=== PATIENT | male | born 1955 | race Two or more races ===

== ENCOUNTER → 2020-03-27 | Emergency (ER) | payer MEDICAID | END | disposition left against medical advice (07) | LOC: ER 22:33 | DX: B02.9 Zoster without complications (principal); Z53.21 Procedure and treatment not carried out due to patient leaving prior to being seen by health care provider ==

== ENCOUNTER 2020-03-28 07:41 | Emergency (ER) | payer MEDICAID ==
[~2020-03-28] VITALS: Ht 170.2 cm; Wt 108.9 kg
[2020-03-28 08:13] VITALS: BP 138/57
[2020-03-28] MEDS ORDERED: cefTRIAXone 1GM/50ML D5W 50 ML IV ONE (09:00)
[2020-03-28] MEDS ORDERED: ACETAMINOPHEN 325 MG TAB PO ONE (09:15)
== END 2020-03-28 09:47 | disposition home or self-care (01) ==
LOC: ER 07:41
DX: L02.211 Cutaneous abscess of abdominal wall (principal); I10 Essential (primary) hypertension
CPT/HCPCS: 96365; 99284; J0696

== ENCOUNTER 2020-08-24 18:43 | Emergency (ER) | payer OTHER, MEDICAID ==
[~2020-08-24] VITALS: Ht 170.2 cm; Wt 111.1 kg
[2020-08-24 19:11] VITALS: BP 141/71
== END 2020-08-24 22:03 | disposition home or self-care (01) ==
LOC: ER 18:43
DX: H92.01 Otalgia, right ear (principal); Z53.21 Procedure and treatment not carried out due to patient leaving prior to being seen by health care provider

== ENCOUNTER 2021-02-20 00:20 | Emergency (ER) | payer MEDICARE, MEDICAID ==
[~2021-02-20] VITALS: Ht 170.2 cm; Wt 111.1 kg
[2021-02-20 01:47] LABS: Basophils # (auto) 0 10 ^3/uL (0-0.2); Basophils % (auto) 0.4 % (0.0-2.0); Eosinophils # (auto) 0.3 10 ^3/uL (0-0.8); Eosinophils % (auto) 4.5 % (0.0-7.0); Hematocrit 47.5 % (41.0-53.0); Hemoglobin 16.3 g/dL (13.5-17.5); Lymphocytes # (auto) 2.9 10 ^3/uL (0.4-5.4); Lymphocytes % (auto) 48.9 % (10.0-50.0); Mean Corpuscular Hemoglobin 30.5 pg (28.0-32.0); Mean Corpuscular Hgb Conc. 34.4 g/dL (32.0-36.0); Mean Corpuscular Volume 88.8 fL (80.0-100.0); Monocytes # (auto) 0.6 10 ^3/uL (0-1.3); Monocytes % (auto) 9.6 % (0.0-12.0); Neutrophils # (auto) 2.2 10 ^3/uL (1.6-8.6); Neutrophils % (auto) 36.6 % (37.0-80.0); Nucleated Red Blood Cells % 0.1 %; Platelet Count (auto) 215 10^3/uL (140-450); Red Blood Cells 5.35 10^6/uL (4.5-5.90); Red Cell Distribution Width 13.6 % (11.8-14.3)
[2021-02-20 01:50] LABS: INR 0.97 (0.9-1.15); Partial Thromboplastin Time 29.2 sec (23.0-31.2)
[2021-02-20 01:56] LABS: Albumin 3.9 g/dL (3.4-5.0); Anion Gap 7 (5-15); Blood Urea Nitrogen 11 mg/dL (7-18); Calcium 8.6 mg/dL (8.5-10.1); Carbon Dioxide 23 mmol/L (21-32); Chloride 108 mmol/L (98-107); Glucose 109 mg/dL (74-106); Potassium 3.5 mmol/L (3.5-5.1); Sodium 138 mmol/L (136-145)
[2021-02-20 01:58] LABS: BUN/Creatinine Ratio 14.7; GFR African American 134 mL/min; GFR Non-African American 111 mL/min
[2021-02-20 02:05] LABS: Alanine Aminotransferase 26 U/L (16-61); Alkaline Phosphatase 85 U/L (45-117); Aspartate Aminotransferase 8 U/L (15-37); Bilirubin, Total 0.3 mg/dL (0.2-1.0); Total Protein 7.1 g/dL (6.4-8.2)
[2021-02-20 03:07] LABS: Urine Bacteria NONE SEEN /hpf (None Seen); Urine Blood Negative /uL (Negative); Urine Mucus FEW (None Seen); Urine Specific Gravity 1.007 (1.001-1.035); Urine WBC <1 /hpf (0 - 3)
[2021-02-20] MEDS ORDERED: ACETAMINOPHEN 500 MG TAB PO ONE (05:15)
[2021-02-20 06:08] VITALS: BP 131/65
== END 2021-02-20 06:23 | disposition home or self-care (01) ==
LOC: ER 00:31
DX: R07.89 Other chest pain (principal); I10 Essential (primary) hypertension; R51.9 Headache, unspecified
CPT/HCPCS: 36415; 70450; 71045; 80053; 81001; 83880; 84484; 85025; 85610; 85730; 93005

== ENCOUNTER 2021-05-22 07:47 | Emergency (ER) | payer OTHER, MEDICAID ==
[~2021-05-22] VITALS: Ht 170.2 cm; Wt 112.5 kg
[2021-05-22 09:02] VITALS: BP 157/81
[2021-05-22] MEDS ORDERED: CLINDAMYCIN 900MG IV 50 ML IV ONE (10:00)
[2021-05-22] MEDS ORDERED: TETANUS-DIPTH-ACEL PERTUSSIS 0.5ML SYR Tdap IM ONE (10:00)
[2021-05-22] MEDS ORDERED: KETOROLAC TROMETH 30 MG/ML 1ML VIAL IV ONE (10:15)
== END 2021-05-22 11:04 | disposition home or self-care (01) ==
LOC: ER 07:47
DX: L03.011 Cellulitis of right finger (principal); I10 Essential (primary) hypertension
CPT/HCPCS: 73140; 90471; 90715; 96365; 96372; 99284; J1885; J3490